=== PATIENT | male | born 1980 | race Two or more races ===

== ENCOUNTER 2017-02-04 11:31 | Emergency (ER) | payer OTHER ==
[2017-02-04 11:48] VITALS: BP 122/78; PULSE 48; RESP 16; TEMP 97.9; O2SAT 99
[2017-02-04] MEDS ORDERED: LET GEL TOPICAL 1 EA SYR TP ONE ×2 (11:48→11:50)
--- NOTE | 2017-02-04 12:15 | EDPHY ---
H & P HPI/ROS: CHIEF COMPLAINT: Leg laceration History by patient HISTORY OF PRESENT ILLNESS: 36-year-old man presents complaining of laceration to left lower leg. He was working with [employer] when a piece of rescue equipment that had been attached to the wall they were working on flew off and hit him in the leg. He is able to walk. Pain is minimal. He also complains of bruising around the area. His last tetanus shot was less than 10 years ago. REVIEW OF SYSTEMS: As in HPI, and all other systems reviewed and are negative Smoking Status: Never smoked Physical Exam: General Appearance: Alert and no distress. Eyes: Pupils equal and round no injection. Musculoskeletal: Neck is supple and nontender. Extremities: Left mckoy with a 2 cm laceration deep to muscle with tissue defect and top layer of dermis missing. DP 2+ and equal bilaterally, distal station intact, wiggles toes. Skin: No rashes or lesions except as above Constitutional: Initial Vital Signs Temperature (C) 36.6 C 02/04/17 11:45 Heart Rate 48 L 02/04/17 11:45 Respiratory Rate 16 02/04/17 11:45 Blood Pressure 122/78 H 02/04/17 11:45 O2 Sat (%) 99 02/04/17 11:45 O2 Delivery Mode Room Air Allergies/Adverse Reactions: No Known Allergies Allergy (Unverified 02/04/17 11:43) Home Medications: Medication Instructions Recorded NK [No Known Home Meds] 02/04/17 MDM/Departure - MDM Procedures: Procedure: Laceration repair. Verbal consent was obtained from the patient. The deep laceration on the left lower leg was anesthetized in the usual fashion with topical let and 1% lidocaine with epinephrine. The wound was irrigated, draped and explored to its base with a gloved finger. The laceration was through skin to muscle. No tendon injury was identified. The wound was repaired in 2 layers with 5-0 Vicryl sutures of the deep and subcuticular layers. Because of the tissue defect the dermal layer was not closed as there was no dermis to close. The wound was covered with antibiotic ointment and a bandage. The procedure was performed by myself. Medications Given: Discontinued Medications Tetracaine/Epinephrine/Lidocaine (Let Gel Topical) 1 ea TP EDNOW ONE Stop: 02/04/17 11:49 Last Admin: 02/04/17 11:53 Dose: 1 ea - Depart Disposition: Home, Routine, Self-Care Clinical Impression: Laceration Condition: Good Instructions: Laceration (ED) Additional Instructions: You were seen by Dr. Lucia Dennis today. Keep the wound covered with antibiotic ointment or bland ointment such as Aquaphor and a bandage. You may shower and wash with soap and water as normal starting tomorrow. Do not submerge the wound for the next 10 days. Because of the tissue defect we have closed only the deep tissues with absorbable tissues so you will not need suture removal. The top layer of skin will heal on its own. Please watch for signs this nerves infection including but not limited to fever , redness, draining pus or increased pain. Return for any worsening or new concerns. Referrals: NONE *PRIMARY CARE P,. [Primary Care Provider] - As per Instructions
== END 2017-02-04 13:44 | disposition home or self-care (01) ==
LOC: CED 11:31
PROC: 0HQLXZZ Repair Left Lower Leg Skin, External Approach (ICD-10-PCS; principal; 2017-02-04)
DX: S81.812A Laceration without foreign body, left lower leg, initial encounter (principal); W22.8XXA Striking against or struck by other objects, initial encounter